=== PATIENT | male | born 1980 | race Caucasian/White ===

== ENCOUNTER 2018-06-18 12:38 | Emergency (ER) | payer MEDICAID, MEDICARE ==
--- OUTSIDE RECORDS SUMMARY | 2018-06-18 12:50 | XMS REPORT | Continuity of Care Document ---
:1980 External Reference #:[id number] Author Name Diana Rodriguez Care Team Providers Name Role Phone Niall Doe MD Care Team Information Materials Engineer Unavailable Niall Doe MD Primary Care Physician Unavailable Payers Type Date Identification Numbers Payment Provider Subscriber Policy Number: [id number] Medicaid Hernesto Gann Group Name: [address] PayID: [id number] [place] [address] Advance Directives Description No Information Available Problems Description No Information Family History Date Family Member(s) Problem(s) Comments Father 60 Father No Current Problems Mother 58 Mother No Current Problems First Brother 41 First Brother No Current Problems Social History Type Date Description Comments Sex Unknown Tobacco Use Start: Unknown Never Smoked Cigarettes ETOH Use Current Alcohol Use - 1-3 Days A Week. Recreational Drug Use Denies Drug Use Allergies, Adverse Reactions, Alerts Description No Known Drug Allergies Medications Medication Date Status Form Strength Qnty SIG Indications Ordering Provider [facility] 09/06/19 Active [facility] services and [facility] services. Immunizations Description No Information Available Vital Signs Date Vital Result Comment 05/29/2018 9:23am Weight 240.00 lb Height 71 inches 5'11" BMI (Body Mass Index) 33.5 kg/m2 BP Systolic 119 mmHg BP Diastolic 72 mmHg Heart Rate 68 /min O2 % BldC Oximetry 97 % Body Temperature 96.7 F Pain Level 2 Results Description No Information Available Procedures Date Code Description Status 02/24/2010 59308 Audiometry, Comprehensive Completed 02/24/2010 72568 Tympanometry And Reflex Thres Completed 10/13/2007 65433 I & D Abscess Peritonsillar Completed 11/02/2006 70561 Nasal Endoscopy, Diag. Completed 10/25/2006 83172 Submucous Resect.Turb.Par Or Comp Completed 10/25/2006 34995 Submucous Resect.Turb.Par Or Comp Completed 07/27/2006 76685 Nasal Endoscopy, Diag. Completed Encounters Type Date Location Provider Dx Diagnosis Office Visit 02/04/2007 Main Office Juan Carlos Fodr M.D. 478.0 Hypertrophy Nasal 10:30a [facility] Office Visit 10/19/2006 Main Office Juan Carlos Ford M.D. 478.0 Hypertrophy Nasal 8:00a [facility] Office Visit 09/10/2006 Main Office Juan Carlos Ford M.D. 478.0 Hypertrophy Nasal 2:15p [facility] Office Visit 07/27/2006 Main Office Juan Carlos Ford M.D. 472.0 Rhinitis Chronic 10:00a 473.2 Sinusitis Chronic Ethmoidal 478.0 Hypertrophy Nasal [facility] 471.9 Nasal Polyp Unspec Plan of Treatment No Information Available
[2018-06-18 12:55] VITALS: BP 144/79
--- NOTE | 2018-06-18 13:13 | UC ---
[facility] Dental HPI - HPI Summary HPI Summary: dental pain x 5 days pain is at right lower back , + swelling pain is 5 out of 10 , no radiation worse with chewing, better with Tylenol was seen at his dentist today , was told to go to the Urgent care for antibiotics - History of Current Complaint Chief Complaint: UCDentalProblem Stated Complaint: DENTAL COMPLAINT Time Seen by Provider: 06/18/18 13:04 Hx Obtained From: Patient Onset/Duration: Gradual Onset, Lasting Days - 5, Still Present Severity: Moderate Pain Intensity: 5 Aggravating Factor(s): Cold, Chewing Alleviating Factor(s): OTC Meds - Tylenol Dental: 1 - tenderness - Allergies/Home Medications Allergies/Adverse Reactions: Allergies Allergy/AdvReac Type Severity Reaction Status Date / Time hayfever Allergy Eyes Uncoded 06/18/18 12:51 Itchy/Swollen/Red/Watery PMH/Surg Hx/FS Hx/Imm Hx - Additional Past Medical History Additional PMH: hearing defiect-wears bilateral hearing aids. - Surgical History Surgical History: Yes Surgery Procedure, Year, and Place: hernia repair - Family History Known Family History: Positive: None, Diabetes - grandfather - Social History Alcohol Use: Occasionally Substance Use Type: None Smoking Status (MU): Never Smoked Tobacco Review of Systems All Other Systems Reviewed And Are Negative: Yes Constitutional: Positive: Negative Skin: Positive: Negative Eyes: Positive: Negative ENT: Positive: Dental Pain Respiratory: Positive: Negative Cardiovascular: Positive: Negative Is Patient Immunocompromised?: No Physical Exam Triage Information Reviewed: Yes Appearance: Well-Appearing, No Pain Distress, Well-Nourished Vital Signs: Initial Vital Signs Temp 97.7 F 06/18/18 12:52 Pulse 80 06/18/18 12:52 Resp 15 06/18/18 12:52 BP 144/79 06/18/18 12:52 Pulse Ox 99 06/18/18 12:52 Vital Signs Reviewed: Yes Eye Exam: Normal Eyes: Positive: Conjunctiva Clear ENT: Positive: Normal ENT inspection, Hearing grossly normal, Pharynx normal Dental: Positive: Percussion Tenderness @ - 30, Gross Decay/Caries @ - 30, Dental Fracture @ - 30, Abscess @ - 30 Neck: Positive: Supple, Nontender, No Lymphadenopathy Respiratory: Positive: Chest non-tender, Lungs clear, Normal breath sounds Cardiovascular: Positive: RRR, No Murmur, Pulses Normal Dental Complaint Course/Dx - Differential Dx/Diagnosis Provider Diagnosis: Tooth abscess Discharge - Sign-Out/Discharge Documenting (check all that apply): Patient Departure All imaging exams completed and their final reports reviewed: No Studies - Discharge Plan Condition: Stable Disposition: HOME Prescriptions: Clindamycin Cap(NF) [Clindamycin Cap 300 mg Cap(NF)] 300 mg PO TID #30 cap Patient Education Materials: Dental Abscess (ED) Referrals: Niall Doe MD [Primary Care Provider] - If Needed - Billing Disposition and Condition Condition: STABLE Disposition: Home
== END 2018-06-18 13:14 | disposition home or self-care (01) ==
LOC: UCCORT 12:38
DX: K04.7 Periapical abscess without sinus (principal); K02.9 Dental caries, unspecified
CPT/HCPCS: 99212; G0463

== ENCOUNTER 2018-09-03 21:07 | Emergency (ER) | payer MEDICAID, MEDICARE ==
[2018-09-03 21:22] VITALS: BP 147/87
[2018-09-03] MEDS ORDERED: Neomyc/Polym/HC 1% OTIC SUSP* **OTIC RIGHT EAR ONE ×2 (21:52→21:58)
--- NOTE | 2018-09-03 21:52 | UC ---
[facility] General HPI - HPI Summary HPI Summary: R EAR PAIN SINCE THIS AM. PAIN IN THE CANAL WHEN HE PLACES THE HEARING AIDE PLUS PAIN DEEP IN HIS EAR WELL. TAKING IB WITH A LITTLE RELIEF. THINKS IT IS AN INFECTION. - History of Current Complaint Chief Complaint: UCEar Stated Complaint: RIGHT EAR PAIN Time Seen by Provider: 09/03/18 21:43 Hx Obtained From: Patient Onset/Duration: Gradual Onset Timing: Constant Pain Intensity: 9 Associated Signs & Symptoms: Negative: Fever, Headache - Allergy/Home Medications Allergies/Adverse Reactions: Allergies Allergy/AdvReac Type Severity Reaction Status Date / Time ragweed pollen Allergy Eyes Verified 09/03/18 21:23 Itchy/Swollen/Red/Watery hayfever Allergy Eyes Uncoded 06/18/18 12:51 Itchy/Swollen/Red/Watery Home Medications: Home Medications Ibuprofen 800 mg PO Q6HR PRN 09/03/18 [History Confirmed 09/03/18] PMH/Surg Hx/FS Hx/Imm Hx - Additional Past Medical History Additional PMH: [place] MEASLES, HEARING LOSS - Surgical History Surgical History: Yes Surgery Procedure, Year, and Place: hernia repair - Family History Known Family History: Positive: None, Diabetes - grandfather - Social History Alcohol Use: Occasionally Substance Use Type: None Smoking Status (MU): Never Smoked Tobacco Review of Systems All Other Systems Reviewed And Are Negative: Yes ENT: Positive: Ear Ache Physical Exam Triage Information Reviewed: Yes Appearance: Well-Appearing Vital Signs: Initial Vital Signs Temp 97.7 F 09/03/18 21:15 Pulse 73 09/03/18 21:15 Resp 16 09/03/18 21:15 BP 147/87 09/03/18 21:15 Pulse Ox 100 09/03/18 21:15 Vital Signs Reviewed: Yes Eyes: Positive: Conjunctiva Clear ENT: Positive: Pharynx normal, TMs normal - L, TM dull - R, Other - R CANAL IS RED. HEARING AIDE RETURNED TO L EAR AND PT HELD R FOR DROP PLACEMENT. NO AURICULAR ADENOAPTHY OR MASTOID TENDERNESS.. Negative: Nasal congestion, Nasal drainage Dental: Negative: Percussion Tenderness @ Neck: Positive: Supple, Nontender, No Lymphadenopathy Respiratory: Positive: No respiratory distress Cardiovascular: Positive: RRR Musculoskeletal: Positive: ROM Intact Neurological: Positive: Alert Psychological: Positive: Age Appropriate Behavior Skin Exam: Normal Skin: Negative: Rashes Course/Dx - Differential Dx - Multi-Symptom Differential Diagnoses: Other - R OE AND POSSIBLE EARLY OM THUS WILL TX WITH PO AND TOPICAL ANTIBIOTICS. PT ADVISED TO KEEP R HEARING AIDE OUT WHILE USING THE DROPS. HE WILL F/U WITH HIS ENT, DR FAJARDO. - Diagnoses Provider Diagnosis: Right otitis externa Discharge - Sign-Out/Discharge Documenting (check all that apply): Patient Departure All imaging exams completed and their final reports reviewed: No Studies - Discharge Plan Condition: Stable Disposition: HOME Prescriptions: Amoxicillin PO (*) [Amoxicillin 875 MG (*)] 875 mg PO BID 7 Days #14 tab Patient Education Materials: Otitis Externa (ED) Referrals: Juan Carlos Fajardo MD [Medical Doctor] - 7 Days Additional Instructions: use the ear drops, 4 drops right ear 3x's daily for 7 days. - Billing Disposition and Condition Condition: STABLE Disposition: Home
[2018-09-03] MEDS ORDERED: Amoxicillin PO (*) 500 MG CAP PO ONE (21:53)
== END 2018-09-03 22:15 | disposition home or self-care (01) ==
LOC: UCCORT 21:07
DX: H60.91 Unspecified otitis externa, right ear (principal); H91.93 Unspecified hearing loss, bilateral
CPT/HCPCS: 99212; A9270-GY; G0463

== ENCOUNTER 2018-10-17 16:05 | Emergency (ER) | payer MEDICAID ==
--- OUTSIDE RECORDS SUMMARY | 2018-10-17 16:18 | XMS REPORT | Continuity of Care Document ---
:1980 External Reference #:[id number] Author Name Marilee Griffin Care Team Providers Name Role Phone Niall Doe MD Care Team Information Sander Hand Unavailable Niall Doe MD Primary Care Physician Unavailable Payers Date Identification Numbers Payment Provider Subscriber Policy Number: [id number] Medicaid Hernesto Gann Group Name: [address] PayID: [id number] [place] [address] Advance Directives Description No Information Available Problems Description No Information Family History Date Family Member(s) Observation Comments Father 60 Father No Current Problems Mother 58 Mother No Current Problems First Brother 41 First Brother No Current Problems Social History Type Date Description Comments Sex Unknown Tobacco Use Start: Unknown Never Smoked Cigarettes ETOH Use Current Alcohol Use - 1-3 Days A Week. Recreational Drug Use Denies Drug Use Allergies, Adverse Reactions, Alerts Description No Known Drug Allergies Medications Active Medications SIG Qnty Indications Ordering Date Provider Ipratropium [place] 2 sprays each side 30ml Juan Carlos Ford, 08/08/2018 nostril everyday 2 M.D. 0.03% Solution months Singulair 1 by mouth every 45tabs Juan Carlos Ford, 08/08/2018 10mg day M.D. Tablets Fluticasone 2 sprays both 16gm Juan Carlos Ford, 06/16/2018 Propionate nostrils every day M.D. 50mcg/Act Suspension [facility] audlogical services Juan Carlos Ford, 09/06/2007 and hearing aid M.D. services. History Medications Augmentin twice a day 1 14tabs Juan Carlos Ford, 06/16/2018 - 875-125mg week M.D. 08/08/2018 Tablets Immunizations Description No Information Available Vital Signs Date Vital Result Comment 09/19/2018 9:58am Weight 239.00 lb Height 71 inches 5'11" BMI (Body Mass Index) 33.3 kg/m2 BP Systolic 114 mmHg BP Diastolic 75 mmHg Heart Rate 67 /min O2 % BldC Oximetry 99 % Body Temperature 97.5 F Pain Level 0 08/08/2018 1:09pm Weight 240.00 lb Height 71 inches 5'11" BMI (Body Mass Index) 33.5 kg/m2 BP Systolic 112 mmHg BP Diastolic 76 mmHg Heart Rate 85 /min O2 % BldC Oximetry 97 % Body Temperature 97.8 F Pain Level 0 05/29/2018 9:23am Weight 240.00 lb Height 71 inches 5'11" BMI (Body Mass Index) 33.5 kg/m2 BP Systolic 119 mmHg BP Diastolic 72 mmHg Heart Rate 68 /min O2 % BldC Oximetry 97 % Body Temperature 96.7 F Pain Level 2 Results Description No Information Available Procedures Date Code Description Status 08/08/2018 03223 Nasal Endoscopy, Diag. Completed 06/07/2018 72994 Cat Scan Maxillofacial W/O Contrast,computed tomography Completed 06/07/2018 08034 Cat Scan Maxillofacial W/O Contrast,computed tomography Completed 06/07/2018 60879 Cat Scan Maxillofacial W/O Contrast,computed tomography Completed 05/29/2018 10034 Nasal Endoscopy, Diag. Completed 02/24/2010 20595 Audiometry, Comprehensive Completed 02/24/2010 02333 Tympanometry And Reflex Thres Completed 10/13/2007 00235 I & D Abscess Peritonsillar Completed 11/02/2006 77090 Nasal Endoscopy, Diag. Completed 10/25/2006 15454 Submucous Resect.Turb.Par Or Comp Completed 10/25/2006 08965 Submucous Resect.Turb.Par Or Comp Completed 07/27/2006 21779 Nasal Endoscopy, Diag. Completed Encounters Type Date Location Provider Dx Diagnosis Office Visit 02/04/2007 Main Office Juan Carlos Ford M.D. 478.0 Hypertrophy Nasal 10:30a [facility] Office [...]
[2018-10-17 16:38] VITALS: BP 115/71
--- NOTE | 2018-10-17 16:48 | UC ---
Complaint Male HPI - HPI Summary HPI Summary: Pt presents with c/o of "hemorrhoid" that began 6 days ago. Pt reports that he was very "gassy" on 10/12 and had to strain with BM. Pt then noticed a bulging at anus. Pt has been applying preparation H with no improvement. Pt denies rectal bleeding. - History of Current Complaint Chief Complaint: UCGI Stated Complaint: PERSONAL Time Seen by Provider: 10/17/18 16:41 Hx Obtained From: Patient Onset/Duration: Sudden Onset, Lasting Days, Still Present Timing: Constant Severity Initially: Mild Severity Currently: Mild Pain Intensity: 0 Location: Other - anus Aggravating Factor(s): Straining Associated Signs And Symptoms: Positive: Rectal Pain - rectal pressure, and soft non tender bulge - Risk Factors Testicular Torsion: Negative - Allergies/Home Medications Allergies/Adverse Reactions: Allergies Allergy/AdvReac Type Severity Reaction Status Date / Time ragweed pollen Allergy Eyes Verified 10/17/18 16:39 Itchy/Swollen/Red/Watery hayfever Allergy Eyes Uncoded 10/17/18 16:39 Itchy/Swollen/Red/Watery PMH/Surg Hx/FS Hx/Imm Hx Previously Healthy: Yes - Surgical History Surgical History: Yes Surgery Procedure, Year, and Place: nose and ears, hernia repair, finger repair - Family History Known Family History: Positive: Diabetes - grandfather - Social History Occupation: Employed Full-time Lives: With Family Alcohol Use: Occasionally Substance Use Type: None Smoking Status (MU): Never Smoked Tobacco Have You Smoked in the Last Year: No - Immunization History Vaccination Up to Date: Yes Review of Systems All Other Systems Reviewed And Are Negative: Yes Constitutional: Positive: Negative Skin: Positive: Negative Eyes: Positive: Negative ENT: Positive: Negative Respiratory: Positive: Negative Cardiovascular: Positive: Negative Gastrointestinal: Positive: Other - non tender bulge at anus Genitourinary: Positive: Negative Motor: Positive: Negative Neurovascular: Positive: Negative Musculoskeletal: Positive: Negative Neurological: Positive: Negative Psychological: Positive: Negative Is Patient Immunocompromised?: No Physical Exam Triage Information Reviewed: Yes Appearance: Well-Appearing Vital Signs: Initial Vital Signs Temp 97.5 F 10/17/18 16:31 Pulse 95 10/17/18 16:31 Resp 16 10/17/18 16:31 BP 115/71 10/17/18 16:31 Pulse Ox 99 10/17/18 16:31 Vital Signs Reviewed: Yes Eye Exam: Normal ENT Exam: Other - pt has hearing aids in bilateral ears. Dental Exam: Normal Neck exam: Normal Respiratory: Positive: No respiratory distress Male Genital Exam: Positive: Other - non thrombosed outer hemorroid Musculoskeletal Exam: Normal Neurological Exam: Normal Psychological Exam: Normal Skin Exam: Normal Complaint Male Course/Dx - Course Course Of Treatment: Pt was referred to his PCP, a general surgeon and a gI specialist for f/u. - Differential Dx/Diagnosis Differential Diagnosis/HQI/PQRI: Other - hemorrhoid Provider Diagnosis: Hemorrhoid Discharge - Sign-Out/Discharge Documenting (check all that apply): Patient Departure All imaging exams completed and their final reports reviewed: No Studies - Discharge Plan Condition: Stable Disposition: HOME Patient Education Materials: Hemorrhoids (ED) Referrals: Darling Delgado MD [Medical Doctor] - As Soon As Possible Andrei Rizo [Medical Doctor] - As Soon As Possible Niall Doe MD [Primary Care Provider] - If Needed Additional Instructions: Please follow up with the recommended providers listed above. You can try the following interventions: Tucks medicated Pads, Sitz bath, and Epsom Salts to use in a bath tub to soak. - Billing Disposition and Condition Condition: STABLE Disposition: Home
== END 2018-10-17 17:05 | disposition home or self-care (01) ==
LOC: UCCORT 16:05
DX: K64.9 Unspecified hemorrhoids (principal)
CPT/HCPCS: 99211; G0463